=== PATIENT | male | born 1990 | race Caucasian/White ===

== ENCOUNTER 2017-04-25 19:08 | Emergency (ER) | payer OTHER ==
[~2017-04-25] VITALS: Ht 180.3 cm; Wt 132.9 kg
== END 2017-04-25 21:10 | disposition home or self-care (01) ==
LOC: ER 19:08
DX: M25.512 Pain in left shoulder (principal); Z88.5 Allergy status to narcotic agent
CPT/HCPCS: 73030; 99283

== ENCOUNTER → 2021-05-10 | Outpatient (CLI) | payer OTHER | END | disposition home or self-care (01) | LOC: LAB SHORT 15:36 | DX: L02.411 Cutaneous abscess of right axilla (principal) | CPT/HCPCS: 87070; 87075; 87077; 87147; 87186; 87205 ==

== ENCOUNTER 2021-08-13 16:40 | Emergency (ER) | payer OTHER ==
[~2021-08-13] VITALS: Ht 180.3 cm; Wt 134.7 kg
[2021-08-13] MEDS ORDERED: KETO10 PO (20:17)
[2021-08-13] MEDS ORDERED: CYCL10 PO (20:17)
== END 2021-08-13 20:36 | disposition home or self-care (01) ==
LOC: ER 16:40
DX: M54.50 Low back pain, unspecified (principal); G40.909 Epilepsy, unspecified, not intractable, without status epilepticus; Z88.5 Allergy status to narcotic agent
CPT/HCPCS: 72100; 99283-25; A9270